=== PATIENT | female | born 1990 | race Caucasian/White ===

== ENCOUNTER 2021-05-03 17:39 | Emergency (ER) | payer OTHER, SELFPAY ==
[2021-05-03 18:38] VITALS: BP 118/74; PULSE 75; RESP 14; TEMP 36.9; O2SAT 100; BMI 29.9
--- NOTE | 2021-05-03 19:05 | USR_ITS ---
PROCEDURE INFORMATION: Exam: US Abdomen, Limited; Right Upper Quadrant Exam date and time: 05/03/2021 7:05 PM Age: 31 years old Clinical indication: Abdominal pain; Acute; Patient HX: Had gastric bypass in last 6 months; Additional info: Abd pain TECHNIQUE: Imaging protocol: US abdomen. Real time ultrasound with image documentation. Limited exam focused on the right upper quadrant. COMPARISON: No relevant prior studies available. FINDINGS: Liver: Normal. No masses. Gallbladder: Cholelithiasis. Gallbladder wall 3.6 mm greatest thickness in the fundus. No pericholecystic fluid. No significant gallbladder distention. Common bile duct: Common bile duct 3-4 mm diameter. No intrahepatic bile duct dilation. Pancreas: Visualized pancreas is unremarkable. Right kidney: Normal. No mass. No hydronephrosis. Aorta: Abdominal aorta is normal diameter. US/US gall bladder [id number] IMPRESSION: 1. Cholelithiasis. 2. Gallbladder wall upper limits normal, but no pericholecystic fluid seen to suggest convincing evidence for acute cholecystitis. Clinical correlation necessary.
--- NOTE | 2021-05-03 20:24 | W.ED.ABDPA2 ---
HPI - Abdominal Pain General: Chief Complaint: Abdominal Pain Stated Complaint: Nausia, vomiting, Dr. lenny romero gall stones Time Seen by Provider: 05/03/21 20:14 Source: patient Mode of arrival: ambulatory Limitations: no limitations History of Present Illness: 31-year-old female who had a history of gastric sleeve back in December states that over the last 3 to 4 days she has been having epigastric right upper quadrant pain especially with eating and extreme decreased appetite. She states that her physician was worried it could be her gallstone. She has had no vomiting denies any fever denies any diarrhea or change in bowel habits. States that her pain currently is a 3 out of 10 and cramping in nature. Denies any severe pain. Associated Symptoms: Reports nausea; Denies chills, dysuria and fever(s) Review of Systems Const: Denies: fever(s), chills, body aches or change in appetite Eyes: Denies: blurry vision or eye discomfort ENMT: Denies: throat pain or dental pain Card: Denies: chest pain Resp: Denies: dyspnea GI: Reports: abdominal pain and nausea : Denies: dysuria Musc: Denies: neck pain or back pain Skin/Breast: Denies: rash Neuro: Denies: headache(s) Psych: Denies: depression Faisal/Lymph: Denies: easy bruising All/Imm: Denies: urticaria PFSH ED PFSH: Surgical History H/O gastric sleeve Social History (Updated 05/03/21 @ 20:26 by Ramses Davidson MD) Substance/Drug Use: never Physical Exam Const: COMMON NORMALS: no acute distress, patient oriented x3 and healthy appearing HENMT: COMMON NORMALS: normocephalic and atraumatic HEAD & SCALP: normocephalic and atraumatic Eye: COMMON NORMALS: Equal, round and reactive pupils present and EOMs intact bilaterally PUPIL: Yes Equal, round and reactive pupils present Neck/C-Spine: COMMON NORMALS: full ROM and supple Chest: COMMONS NORMALS: normal inspection of the chest and normal palpation of entire chest wall Resp: COMMON NORMALS: normal respiratory effort, No retractions, No use of accessory muscles and clear to auscultation bilaterally AUSCULTATION: clear to auscultation bilaterally Cardio: COMMON NORMALS: regular rate, regular rhythm and No murmurs present (Cardio) RATE: regular rate RHYTHM: regular rhythm GI: COMMON NORMALS: Normal to inspection, nondistended, normoactive bowel sounds present, Soft to palpation, non-tender and no masses PALPATION: Yes Soft to palpation Extremity: COMMON NORMALS: normal to inspection and full ROM Neuro: COMMON NORMALS: patient oriented x3, moves all extremities and no focal motor deficits Psych: COMMON NORMALS: mental status grossly normal, Normal thought process present and cooperative THOUGHT PROCESS: Normal thought process present Skin: COMMON NORMALS: no rashes or lesions noted and no wounds GENERAL SKIN EXAM: no rashes or lesions noted Course Vital Signs: Vital signs: Vital Signs Temperature 98.4 F 05/03/21 18:38 Pulse Rate 75 05/03/21 18:38 Respiratory Rate 16 05/03/21 21:39 Blood Pressure 118/74 05/03/21 18:38 Pulse Oximetry 100 05/03/21 18:38 MDM - Abdominal Pain Medical Decision Making Patient presents here with abdominal pain likely from biliary colic ultrasound did show gallstones no signs of cholecystitis patient's blood work is normal she feels improved here after IV fluids and Zofran. Will prescribe her pain meds for home and get her follow-up with surgery outpatient for her gallbladder she is return if worsening she understands agrees to plan. Lab Data : 05/03/21 20:20 05/03/21 20:20 Labs/Radiology: Radiology Impressions Gallbladder Ultrasound 05/03/21 19:05 IMPRESSION: 1. Cholelithiasis. 2. Gallbladder wall upper limits normal, but no pericholecystic fluid seen to suggest convincing evidence for acute cholecystitis. Clinical correlation necessary. Laboratory Results WBC 7.8 10^3/uL (4.0-10.0) 05/03/21 20:20 RBC 5.10 10^6/uL (4.1-5.3) 05/03/21 20:20 Hgb 12.5 g/dL (11.5-15.3) 05/03/21 20:20 Hct 41.3 % (37.0-47.0) 05/03/21 20:20 MCV 81.0 fl (81-99) 05/03/21 20:20 MCH 24.5 pg (28.0-34.0) L 05/03/21 20:20 MCHC 30.3 g/dL (30.0-36.0) 05/03/21 20:20 RDW 17.2 % (12.1-15.1) H 05/03/21 20:20 Plt Count 391 10^3/cmm (130-400) 05/03/21 20:20 MPV 11.0 fL (7.4-10.4) H 05/03/21 20:20 Neut % (Auto) 68.1 % 05/03/21 20:20 Lymph % (Auto) 23.5 % 05/03/21 20:20 [place] % (Auto) 6.3 % 05/03/21 20:20 Eos % (Auto) 1.3 % 05/03/21 20:20 Baso % (Auto) 0.5 % 05/03/21 20:20 Neut # (Auto) 5.34 10^3/uL (1.8-7.7) 05/03/21 20:20 Lymph # (Auto) 1.8 10^3/uL (0.8-4.8) 05/03/21 20:20 [place] # (Auto) 0.5 10^3/uL (0.2-0.9) 05/03/21 20:20 Eos # (Auto) 0.1 10^3/uL (0.0-0.8) 05/03/21 20:20 Baso # (Auto) 0.0 10^3/uL (0.0-0.1) 05/03/21 20:20 Nucleated RBC % (auto) 0 % 05/03/21 20:20 Nucleated RBCs # 0.0 /100WBC 05/03/21 20:20 Sodium 139 mmol/L (136-145) 05/03/21 20:20 Potassium 3.7 mmol/L (3.5-5.1) 05/03/21 20:20 Chloride 98 mmol/L (98-107) 05/03/21 20:20 Carbon Dioxide 19 mmol/L (22-29) L 05/03/21 20:20 Anion Gap 25.7 (5-19) H 05/03/21 20:20 BUN 5 mg/dL (6-20) L 05/03/21 20:20 Creatinine 0.4 mg/dL (0.5-0.9) L 05/03/21 20:20 GFR Calculation 183.8 mL/min (90-130) H 05/03/21 20:20 Glucose 66 mg/dL (65-115) 05/03/21 20:20 Calculated Osmolality 283 mOsm/kg (285-295) L 05/03/21 20:20 Calcium 9.0 mg/dL (8.5-10.5) 05/03/21 20:20 Total Bilirubin 0.4 mg/dL (0.15-1.2) 05/03/21 20:20 AST 30 U/L (0-32) 05/03/21 20:20 ALT 15 U/L (0-33) 05/03/21 20:20 Alkaline Phosphatase 55 IU/L (35-105) 05/03/21 20:20 Total Protein 7.8 g/dL (6.6-8.7) 05/03/21 20:20 Albumin 4.5 g/dL (3.5-5.2) 05/03/21 20:20 Globulin 3.3 g/dL (1.3-4.6) 05/03/21 20:20 Lipase 26 U/L (13-60) 05/03/21 20:20 Discharge Plan Discharge Patient Disposition: Home Clinical Impression: Gallstone Prescriptions: New hydrocodone-acetaminophen 5-325 mg tablet 1 tab PO Q6H PRN (Reason: pain) Qty: 14 0RF Reglan 10 mg tablet 10 mg PO Q6H PRN (Reason: nausea and vomiting) Qty: 20 0RF Discharge Orders: Discharge ED (Routine); Ordered 05/03/21 Ordered By: Ramses Davidson Referrals: Jaime Parham MD [Physician] - 1-3 days Discharge Diet: Advance as tolerated Discharge Activity: Resume usual activity Patient Instructions: Biliary Colic (ED) Coding Level of Care Code ED Enterprise Software Engineer for Chg Fwd Exam Comprehensive
[2021-05-03 20:42] LABS: Basophils % 0.5 %; Eosinophils # 0.1 10^3/uL (0.0-0.8); Eosinophils % 1.3 %; Hematocrit 41.3 % (37.0-47.0); Hemoglobin 12.5 g/dL (11.5-15.3); Lymphocytes # 1.8 10^3/uL (0.8-4.8); Lymphocytes % 23.5 %; Mean Corpuscular HGB Conc 30.3 g/dL (30.0-36.0); Mean Corpuscular Hemoglobin 24.5 pg (28.0-34.0); Monocytes # 0.5 10^3/uL (0.2-0.9); Monocytes % 6.3 %; Neutrophils # 5.34 10^3/uL (1.8-7.7); Neutrophils % 68.1 %; Nucleated Red Blood Cells % 0 %; Platelet Count 391 10^3/cmm (130-400); Red Cell Distribution Width 17.2 % (12.1-15.1); White Blood Count 7.8 10^3/uL (4.0-10.0)
[2021-05-03 21:05] LABS: Albumin Level 4.5 g/dL (3.5-5.2); Alkaline Phosphatase 55 IU/L (35-105); Blood Urea Nitrogen 5 mg/dL (6-20); Carbon Dioxide 19 mmol/L (22-29); Chloride 98 mmol/L (98-107); Globulin 3.3 g/dL (1.3-4.6); Glomerular Filtration Rate 183.8 mL/min (90-130); Glucose 66 mg/dL (65-115); Lipase 26 U/L (13-60); Osmolality Calculated 283 mOsm/kg (285-295); Sodium 139 mmol/L (136-145); Total Bilirubin 0.4 mg/dL (0.15-1.2); Total Protein 7.8 g/dL (6.6-8.7)
[2021-05-03 21:07] LABS: Alanine Aminotransferase 15 U/L (0-33); Anion Gap 25.7 (5-19); Aspartate Amino Transferase 30 U/L (0-32); Potassium 3.7 mmol/L (3.5-5.1)
[2021-05-03 21:39] VITALS: RESP 16
[2021-05-03] MEDS: ondansetron 2 mg/ML SDV 2 mL 4 MG IVP (21:39)
[2021-05-03] MEDS: morphine 4 mg/mL SDV 1 mL IVP (21:39)
[2021-05-03] MEDS: sodium chloride 0.9% 1,000 ML 999 ML IV (21:40)
--- NOTE | 2021-05-03 22:42 | CTR_ITS ---
PROCEDURE INFORMATION: Exam: CT Abdomen And Pelvis With Contrast Exam date and time: 05/03/2021 10:42 PM Age: 31 years old Clinical indication: Nausea and vomiting; Prior surgery; Surgery date: 6+ months; Surgery type: Gastric sleeve; Patient HX: C/O n/v TECHNIQUE: Imaging protocol: Computed tomography of the abdomen and pelvis with contrast. Radiation optimization: All CT scans at this facility use at least one of these dose optimization techniques: automated exposure control; mA and/or kV adjustment per patient size (includes targeted exams where dose is matched to clinical indication); or iterative reconstruction. Contrast material: OMNI 300; Contrast volume: 95 ml; Contrast route: INTRAVENOUS (IV); COMPARISON: US renal BI* [id number] 05/03/2021 7:51 PM RADIATION DOSE METRICS: Total DLP (mGy-cm): 1609.16 FINDINGS: Liver: Geographic wedge-shaped transient hepatic perfusion difference in the anterior right hepatic lobe with characteristic location 3rd inflow lesion. Gallbladder and bile ducts: Normal. No calcified stones. No ductal dilation. Pancreas: Normal. No ductal dilation. Spleen: Normal. No splenomegaly. Adrenal glands: Normal. No mass. Kidneys and ureters: Normal. No hydronephrosis. Stomach and bowel: Gastric sleeve surgical change to the stomach without complication. No inflammatory bowel wall thickening. Negative for bowel obstruction. Negative for bowel perforation. Appendix: No evidence of appendicitis. Normal appearance. Intraperitoneal space: Unremarkable. No free air. No significant fluid collection. Vasculature: Unremarkable. No abdominal aortic aneurysm. Lymph nodes: Unremarkable. No enlarged lymph nodes. Urinary bladder: Unremarkable as visualized. Reproductive: Unremarkable as visualized. Bones/joints: Unremarkable. No acute fracture. Soft tissues: Unremarkable. CT/CT abdomen pelvis w con* [id number] IMPRESSION: Negative CT abdomen and pelvis. No acute pathology identified.
[2021-05-03] MEDS: diphenhydrAMINE 50 mg/mL SDV 1mL 25 MG IVP (22:50)
[2021-05-03] MEDS: metoclopramide 5 mg/mL SDV 2 mL IVP (22:50)
[2021-05-03] MEDS: iohexol 300 mg/mL 100 mL Btl IV (22:58)
[2021-05-04 00:14] VITALS: RESP 16
--- NOTE | 2021-05-06 13:52 | DCPLANNER ---
Patient had message to schedule a follow up appointment for patient with general surgery. corporate relations manager emailed patients information to Jyoti Hernandez and Kady at [facility] General Surgery / ENT clinic. Patients information will be printed and reviewed. Clinic will call patient with appointment information. For further information on this referral, please refer to visit 05.06.21 for follow up appointment information.
== END 2021-05-04 00:14 | disposition home or self-care (01) ==
PROVIDERS: Emergency Medicine; Emergency Provider Emergency Medicine
DX: K80.80 Other cholelithiasis without obstruction (principal)
CPT/HCPCS: 74177; 76705; 80053; 83690; 85025; 96361; 96374; 96375; 99284; J1200; J2270; J2405; J2765; J7030; Q9967

== ENCOUNTER 2021-05-06 05:39 | Emergency (ER) | payer OTHER, SELFPAY ==
[2021-05-06 05:45] VITALS: BP 116/81; PULSE 88; RESP 18; TEMP 36.4; O2SAT 100; BMI 28.9
[2021-05-06] MEDS: sodium chloride 0.9% 1,000 ML 999 ML IV (06:04)
[2021-05-06] MEDS: ondansetron 2 mg/ML SDV 2 mL 4 MG IVP (06:04)
[2021-05-06 06:08] LABS: Basophils % 0.5 %; Eosinophils % 0.1 %; Hematocrit 43.4 % (37.0-47.0); Hemoglobin 12.7 g/dL (11.5-15.3); Lymphocytes # 1.3 10^3/uL (0.8-4.8); Lymphocytes % 14.8 %; Mean Corpuscular HGB Conc 29.3 g/dL (30.0-36.0); Mean Corpuscular Hemoglobin 24.1 pg (28.0-34.0); Mean Corpuscular Volume 82.5 fl (81-99); Mean Platelet Volume 10.4 fL (7.4-10.4); Monocytes # 0.5 10^3/uL (0.2-0.9); Monocytes % 5.7 %; Neutrophils # 6.63 10^3/uL (1.8-7.7); Neutrophils % 78.5 %; Nucleated Red Blood Cells % 0 %; Platelet Count 405 10^3/cmm (130-400); Red Blood Count 5.26 10^6/uL (4.1-5.3); Red Cell Distribution Width 17.3 % (12.1-15.1); White Blood Count 8.4 10^3/uL (4.0-10.0)
[2021-05-06 06:26] VITALS: RESP 18
[2021-05-06] MEDS: morphine 4 mg/mL SDV 1 mL IVP (06:26)
--- NOTE | 2021-05-06 07:00 | ED_ITS ---
HPI - Abdominal Pain General: Chief Complaint: Abdominal Pain Stated Complaint: Gall stones Time Seen by Provider: 05/06/21 05:56 History of Present Illness: 31-year-old female presents to the ER with right upper quadrant abdominal pain. Patient has known cholelithiasis. She was here 3 days ago on May 03 at that time she had an ultrasound that showed cholelithiasis but no evidence of pericholecystic fluid no thickening of the gallbladder wall no signs of acute cholecystitis. CT done at the same visit showed normal findings. Neither study showed any evidence of cholecystitis or dilation of common bile duct. She states to the weekend she has had nausea and vomiting she is used various antiemetics with minimal relief has only been able to take moderate amounts of p.o. fluids. She denies any medic easy melena hematemesis or coffee-ground emesis. MD elicited complaint: abdominal pain Pertinent past history: other (Cholelithiasis) Onset (ago): day(s) Pain Consistency: intermittent Location: RUQ Severity: moderate Quality: cramping Radiation: RUQ Exacerbating factors: eating Relieving factors: nothing Associated Symptoms: Reports anorexia, bloating, change in bowel habits, change in stool character, GI cramping, loose stools, nausea, poor appetite and vom iting; Denies belching, chills, coffee ground emesis, constipation, diarrhea, dyspepsia, dysuria, excessive flatus, fever(s), heartburn, hematochezia, hematuria, hematemesis, fecal incontinence and melena Review of Systems Const: Denies: fever(s) or chills ENMT: Denies: throat pain, ear or mastoid pain, nasal discharge or nasal congestion Card: Denies: chest pain, edema, dyspnea on exertion or orthopnea Resp: Denies: dyspnea, productive cough or non-productive cough GI: Reports: nausea, vomiting, bloating, GI cramping, change in bowel habits and change in stool character; Denies: hematemesis, coffee ground emesis, heartburn, diarrhea, constipation, belching, excessive flatus, fecal incontinence, hematochezia or melena : Denies: dysuria or hematuria Skin/Breast: Denies: rash or pruritus PFSH ED PFSH: Medical History (Updated 05/06/21 @ 08:13 by Cristopher Ruiz DO) Cholelithiasis Surgical History (Updated 05/06/21 @ 08:13 by Cristopher Ruiz DO) H/O gastric sleeve Social History (Updated 05/06/21 @ 07:36 by Cristopher Ruiz DO) Smoking and tobacco status: never smoked Alcohol intake: current Physical Exam Const: COMMON NORMALS: no acute distress GENERAL APPEARANCE: cooperative and comfortable ORIENTATION/CONSCIOUSNESS: Yes awake, Yes oriented to person, Yes oriented to place and Yes oriented to time HENMT: COMMON NORMALS: normocephalic, atraumatic and hearing grossly normal bilaterally HEAD & SCALP: normocephalic and atraumatic Neck/C-Spine: COMMON NORMALS: no JVD Resp: COMMON NORMALS: normal respiratory effort, No retractions, No use of accessory muscles and clear to auscultation bilaterally AUSCULTATION: clear to auscultation bilaterally Cardio: COMMON NORMALS: no JVD, regular rate, regular rhythm and No murmurs present (Cardio) RATE: regular rate RHYTHM: regular rhythm GI: AUSCULTATION: Yes normoactive bowel sounds PALPATION: Yes Tenderness to palpation present (GI) Details: RUQ (Positive Campbell sign) and No Hepatomegaly present PERCUSSION: normal to percussion and dullness to percussion Extremity: COMMON NORMALS: normal to inspection, capillary refill normal, no clubbing, cyanosis or edema, no calf tenderness and no pedal edema Neuro: SENSORIUM/ORIENTATION: Yes oriented to person, Yes oriented to place and Yes oriented to time Skin: COMMON NORMALS: no rashes or lesions noted GENERAL SKIN EXAM: no rashes or lesions noted Course Vital Signs: Vital signs: Vital Signs Temperature 97.5 F L 05/06/21 05:45 Pulse Rate 88 05/06/21 05:45 Respiratory Rate 18 05/06/21 06:26 Blood Pressure 116/81 05/06/21 05:45 Pulse Oximetry 100 05/06/21 05:45 MDM - Abdominal Pain Medical Decision Making Patient has a history of previous bariatric surgery and now is having symptoms that certainly do sound gallbladder related and she has some right upper quadrant abdominal discomfort. However she has no signs of acute cholecystitis. She is mildly dehydrated has little bit of an anion gap we are giving her a couple liters of fluid discussed with Dr. Parham. She does not have objective evidence of acute cholecystitis. Currently the hospital as at peak capacity, she does not have an emergent gallbladder. Dr. Parham recommends a follow-up w ith him in his clinic tomorrow. I am going to get her set up for a HIDA scan and start her on Carafate and Protonix as well and increase her hydrocodone and gave up promethazine suppository. Clear liquid diet until she sees Dr. Parham. Medical Records I reviewed the patient's medical records. Lab Data I reviewed the patient's lab results. : 05/06/21 06:01 05/06/21 06:39 Labs/Radiology: Radiology Impressions Gallbladder Ultrasound 05/06/21 07:07 IMPRESSION: 1. Cholelithiasis without evidence for acute cholecystitis. Some of the stones are close to the gallbladder neck and do not move with positioning. At this time there is no common bile duct obstruction. 2. The amount of sludge within the gallbladder has increased since 05/03/2021. 3. No gallbladder wall thickening or pericholecystic fluid 4. Focal hepatic steatosis. Laboratory Results WBC 8.4 10^3/uL (4.0-10.0) 05/06/21 06:01 RBC 5.26 10^6/uL (4.1-5.3) 05/06/21 06:01 Hgb 12.7 g/dL (11.5-15.3) 05/06/21 06:01 Hct 43.4 % (37.0-47.0) 05/06/21 06:01 MCV 82.5 fl (81-99) 05/06/21 06:01 MCH 24.1 pg (28.0-34.0) L 05/06/21 06:01 MCHC 29.3 g/dL (30.0-36.0) L 05/06/21 06:01 RDW 17.3 % (12.1-15.1) H 05/06/21 06:01 Plt Count 405 10^3/cmm (130-400) H 05/06/21 06:01 MPV 10.4 fL (7.4-10.4) 05/06/21 06:01 Neut % (Auto) 78.5 % 05/06/21 06:01 Lymph % (Auto) 14.8 % 05/06/21 06:01 [place] % (Auto) 5.7 % 05/06/21 06:01 Eos % (Auto) 0.1 % 05/06/21 06:01 Baso % (Auto) 0.5 % 05/06/21 06:01 Neut # (Auto) 6.63 10^3/uL (1.8-7.7) 05/06/21 06:01 Lymph # (Auto) 1.3 10^3/uL (0.8-4.8) 05/06/21 06:01 [place] # (Auto) 0.5 10^3/uL (0.2-0.9) 05/06/21 06:01 Eos # (Auto) 0.0 10^3/uL (0.0-0.8) 05/06/21 06:01 Baso # (Auto) 0.0 10^3/uL (0.0-0.1) 05/06/21 06:01 Nucleated RBC % (auto) 0 % 05/06/21 06:01 Nucleated RBCs # 0.0 /100WBC 05/06/21 06:01 Sodium 141 mmol/L (136-145) 05/06/21 06:39 Potassium 3.8 mmol/L (3.5-5.1) 05/06/21 06:39 Chloride 107 mmol/L (98-107) 05/06/21 06:39 Carbon Dioxide 14 mmol/L (22-29) L 05/06/21 06:39 Anion Gap 23.8 (5-19) H 05/06/21 06:39 BUN 2 mg/dL (6-20) L 05/06/21 06:39 Creatinine 0.4 mg/dL (0.5-0.9) L 05/06/21 06:39 GFR Calculation 183.8 mL/min (90-130) H 05/06/21 06:39 Glucose 131 mg/dL (65-115) H 05/06/21 06:39 Calculated Osmolality 290 mOsm/kg (285-295) 05/06/21 06:39 Calcium 7.7 mg/dL (8.5-10.5) L 05/06/21 06:39 Total Bilirubin 0.3 mg/dL (0.15-1.2) 05/06/21 06:39 AST 13 U/L (0-32) 05/06/21 06:39 ALT 10 U/L (0-33) 05/06/21 06:39 Alkaline Phosphatase 47 IU/L (35-105) 05/06/21 06:39 C-Reactive Protein 13.8 mg/L (0.0-4.9) H 05/06/21 06:39 Total Protein 6.8 g/dL (6.6-8.7) 05/06/21 06:39 Albumin 4.2 g/dL (3.5-5.2) 05/06/21 06:39 Globulin 2.6 g/dL (1.3-4.6) 05/06/21 06:39 Lipase 26 U/L (13-60) 05/06/21 06:39 Discharge Plan Discharge Patient Disposition: Home Clinical Impression: N&V (nausea and vomiting), H/O gastric sleeve, Cholelithiasis Condition: Stable Prescriptions: New Carafate 1 gram tablet 1 g PO Q6H 28 Days Qty: 112 0RF hydrocodone-acetaminophen 10-325 mg tablet 1 tab PO Q6H PRN (Reason: pain) Qty: 20 0RF promethazine 25 mg suppository 25 mg IN Q4H PRN (Reason: nausea and vomiting) Qty: 12 1RF Protonix 40 mg tablet,delayed release (DR/EC) 40 mg PO BID 10 Days Qty: 20 0RF No Action hydrocodone-acetaminophen 5-325 mg tablet 1 tab PO Q6H PRN (Reason: pain) Qty: 14 0RF Reglan 10 mg tablet 10 mg PO Q6H PRN (Reason: nausea and vomiting) Qty: 20 0RF Discharge Orders: Discharge ED (Routine); Ordered 05/06/21 Ordered By: Cristopher Ruiz Discharge Diet: Clear Liquid Patient Instructions: Opioid Safety Activity Restrictions/Additional Instructions: Clear liquid diet. Pain medicines were increased Phenergan to use as needed Carafate and Protonix to use scheduled. Case management make arrangements for you to see Dr. Parham tomorrow as well as we will schedule a HIDA scan. Coding Level of Care Code ED Bowling Or Skating Front Desk Clerk for Chg Fwd Exam Comprehensive
--- NOTE | 2021-05-06 07:07 | US_ITS ---
WS: [id number] RIGHT UPPER QUADRANT ULTRASOUND HISTORY: RUQ abd pain, cholelithiasis COMPARISON: 05/03/2021 Liver: 14.2 cm in length. Liver is normal size. Focal area of increased echogenicity along the surfac e of the liver measures 4.1 x 1.4 x 3.8 cm. Portal Vein: Normal hepatopetal flow with monophasic waveform. Gallbladder: Gallbladder is abnormal. There is sludge and stones within the gallbladder. There is a l arge amount shadowing from the neck of the gallbladder. A stone at the neck is not excluded. There is no common bile duct obstruction at this time. Gallbladder wall measures 0.26 cm. CBD: 0.3 cm Pancreas: Poorly visualized. Right kidney: 10.4 cm in length. Normal size and echogenicity. No hydronephrosis or mass. Aorta and IVC: Unremarkable abdominal aorta and IVC. No ascites. US/US gall bladder [id number] IMPRESSION: 1. Cholelithiasis without evidence for acute cholecystitis. Some of the stones are close to the gallbladder neck and do not move with positioning. At this ti me there is no common bile duct obstruction. 2. The amount of sludge within the gallbladder has increased since 05/03/2021. 3. No gallbladder wall thickening or pericholecystic fluid 4. Focal hepatic steatosis.
[2021-05-06 07:12] LABS: Alanine Aminotransferase 10 U/L (0-33); Albumin Level 4.2 g/dL (3.5-5.2); Alkaline Phosphatase 47 IU/L (35-105); Anion Gap 23.8 (5-19); Aspartate Amino Transferase 13 U/L (0-32); Blood Urea Nitrogen 2 mg/dL (6-20); C Reactive Protein 13.8 mg/L (0.0-4.9); Calcium 7.7 mg/dL (8.5-10.5); Carbon Dioxide 14 mmol/L (22-29); Chloride 107 mmol/L (98-107); Globulin 2.6 g/dL (1.3-4.6); Glomerular Filtration Rate 183.8 mL/min (90-130); Glucose 131 mg/dL (65-115); Lipase 26 U/L (13-60); Osmolality Calculated 290 mOsm/kg (285-295); Potassium 3.8 mmol/L (3.5-5.1); Sodium 141 mmol/L (136-145); Total Bilirubin 0.3 mg/dL (0.15-1.2); Total Protein 6.8 g/dL (6.6-8.7)
[2021-05-06] MEDS: dextrose 5%-sod chloride 0.9% 1,000 ML 2000 ML IV (07:51)
[2021-05-06 08:24] VITALS: BP 119/78; PULSE 86; RESP 16; O2SAT 97
--- NOTE | 2021-05-06 13:55 | DCPLANNER ---
Addendum entered by Pebbles Suero 06/21/21 14:00: Per centralized scheduling the HIDA scan that was ordered was cancelled due to patient request. Addendum entered by Pebbles Suero 05/10/21 06:16: Patient had a follow up appointment scheduled for 05.06.21 with general surgery - patient did attend appointment. Original Note: manager gaming had message to schedule a follow up appointment for patient with general surgery. manager gaming emailed patients information Jyoti Hernandez and Kady at [facility] General Surgery / ENT clinic. Patients information will be printed and reviewed. Clinic will call patient with appointment information. manager gaming also had an order to schedule an outpatient HIDA scan for patient. manager gaming faxed signed order to centralized scheduling, who will call patient with appointment information.
== END 2021-05-06 08:25 | disposition home or self-care (01) ==
PROVIDERS: Emergency Medicine; Emergency Provider Family Medicine
DX: K80.20 Calculus of gallbladder without cholecystitis without obstruction (principal); U07.1 COVID-19
CPT/HCPCS: 36415; 76705; 80053; 83690; 85025; 86140; 87635; 96360; 99284; J2270; J2405; J7030

== ENCOUNTER 2021-05-09 10:19 | Day surgery (SDC) | payer OTHER, SELFPAY ==
[2021-05-08 09:37] VITALS: BMI 28.4
[2021-05-09] VITALS (7 sets, daily range): BP systolic 101–135; BP diastolic 72–81; PULSE 80–92; RESP 16–18; TEMP 36.4–36.8; O2SAT 99–100
--- NOTE | 2021-05-09 11:00 | ANES.PREANE2 ---
Pre-Anesthetic Assessment Height/Weight: Height 1.65 m Weight 77.564 kg Temp Pulse Resp BP Pulse Ox 97.6 F 89 18 117/81 99 05/09/21 10:55 05/09/21 10:55 05/09/21 10:55 05/09/21 10:55 05/09/21 10:55 Preop Diagnosis: Cholelithiasis Operation Date: 05/09/21 13:50 Proposed Procedures p Laparoscopic Cholecystectomy 35369/k80.20(Not Applicable) - Jaime Parham MD Familial anesthetic complications: Holds breath with morphine Was Beta Rafa taken within 24 hours: N/A Was Clonidine taken within 24 hours: N/A Last intake: > 8 hrs, vomited some stomach acid > 1 hr ago Social No alcohol and No tobacco Exam alert, oriented x 3, clear to auscultation bilaterally and regular rate & rhythm Airway Mallampati: Class II Dentition: full Pulmonary Asthma Anesthetic Plan ASA status: 2 Anesthesia: General Medications/Allergies Home Medications Medication Instructions Recorded Confirmed Last Taken Type hydrocodone 5 mg-acetaminophen 325 1 tab PO Q6H PRN #14 tab 05/03/21 05/08/21 Unknown Rx mg tablet metoclopramide HCl 10 mg tablet 10 mg PO Q6H PRN #20 tab 05/03/21 05/08/21 Unknown Rx (Reglan) hydrocodone 10 mg-acetaminophen 1 tab PO Q6H PRN #20 tab 05/06/21 05/08/21 Unknown Rx 325 mg tablet pantoprazole 40 mg tablet,delayed 40 mg PO BID 10 Days #20 tab 05/06/21 05/08/21 Unknown Rx release (Protonix) promethazine 25 mg rectal 25 mg ND Q4H PRN #12 ea 05/06/21 05/08/21 Unknown Rx suppository famotidine 20 mg tablet 20 mg PO BID 05/08/21 05/08/21 Unknown History Allergies Allergy/AdvReac Type Severity Reaction Status Date / Time celecoxib [From Celebrex] Allergy ALGY-Hives Verified 05/08/21 09:32 [facility] Anesthesia Medical History Cholelithiasis Surgical History H/O gastric sleeve H/O wisdom tooth extraction S/P tonsillectomy and adenoidectomy Status post surgery desmoid left leg Social History Smoking and tobacco status: never smoked Alcohol intake: current Data Anesthesia Cardiac Studies: No Data to Display
[2021-05-09 11:04] LABS: OR HCG Qualitative Urine Negative (Negative)
--- NOTE | 2021-05-09 11:05 | P.HP_ITS ---
Same Day Surgery H&P Indication for Procedure/HPI DATE OF PROCEDURE: May 09, 2021 CHIEF COMPLAINT/INDICATIONFOR SURGICAL PROCEDURE: lap ariel/EGD PREOP DIAGNOSIS: Cholelithiasis PLANNED PROCEDURE: Operation Date: 05/09/21 13:50 Proposed Procedures p Laparoscopic Cholecystectomy 03985/k80.20(Not Applicable) - Jaime Parham MD Medications/Allergies* Home Medications Medication Instructions Recorded Confirmed Type famotidine 20 mg tablet 20 mg PO BID 05/08/21 05/08/21 History Allergies/Adverse Reactions Allergy/AdvReac Type Severity Reaction Status Date / Time celecoxib [From Celebrex] Allergy ALGY-Hives Verified 05/08/21 09:32 Pertinent History/Comorbid Conditions* Medical History (Updated 05/06/21 @ 08:13 by Cristopher Ruiz DO) Cholelithiasis Surgical History (Updated 05/06/21 @ 11:16 by Jaime Parham MD) H/O gastric sleeve H/O wisdom tooth extraction S/P tonsillectomy and adenoidectomy Status post surgery desmoid left leg Social History Smoking and tobacco status: never smoked Alcohol intake: current Pertinent Exam Findings alert, oriented x 3 and regular rate & rhythm Recommendations Surgery/Procedure today Coding Level of Care Code Acute Superintendent Car Construction for Chg Eduardo
[2021-05-09] MEDS: ondansetron 2 mg/ML SDV 2 mL 4 MG IVP ×2 (11:10→11:33)
[2021-05-09] MEDS: sodium chloride 0.9% 1,000 ML 30 ML IV (11:32)
[2021-05-09] MEDS: scopolamine 1.5 Patch 1 PATCH TRANSDERMA (11:33)
--- NOTE | 2021-05-09 13:13 | PM.OP ---
Operative Report Date of procedure: May 09, 2021 Pre-op diagnosis: 1. Cholelithiasis 2. Status post laparoscopic sleeve gastrectomy Post-op diagnosis: 1. Cholelithiasis 2. sleeve gastrectomy changes noted, no other abnormalities Procedure done: 1. Esophagogastroduodenoscopy without biopsy 2. Laparoscopic cholecystectomy Specimens removed/disposition: Gallbladder Surgeon: Jaime Parham Anesthesia: General Condition: stable Disposition: PACU Procedure: The patient was taken to the operating room and was intubated under general anesthesia. a bite block was placed and the gastroscopewas introduced and advanced up to fourth portion of the duodenum and slowly withdrawn. Esophagus: Normal GE junction: Z-line at 40 cm Stomach Fundus: Normal Body: Normal Antrum: Normal Pylorus: Normal Post sleeve gastrectomy changes noted Duodenum First portion of duodenum: Normal Second portion of duodenum: Normal Third portion of duodenum: Normal Fourth portion of duodenum: Normal After the antibiotic had been administered, the abdomen was prepped and draped in a sterile manner. Using a #15 blade, a 1 centimeter infraumbilical curvilinear incision was made and using an open [place] technique the peritoneal cavity was entered. A 10 millimeter port was placed and 15 millimeters of pneumoperitoneum was created. A 10 millimeter, 30 degrees scope was then introduced. Three 5 millimeter ports were placed in the epigastric, midclavicular and the anterior axillary line two fingerbreadths below the costal margin on the right side under the direct visualization. Ratcheted forceps were introduced into the lateral most port and was used to retract the fundus of the gallbladder cephalad and using forceps the infundibulum of the gallbladder was retracted laterally. Using L-hook cautery the peritoneum overlying the Calot's triangle was opened medially and laterally until the cystic duct and the cystic artery were skeletonized. Dissection was carried along the body of the gallbladder and after ensuring critical view of safety, 4 clips applied on the cystic duct and 3 clips applied on the cystic artery and cut leaving, 3 clips on the remaining portion of the duct and 2 clips on the remaining portion of the artery. The rest of the gallbladder was dissected off the liver using L-hook cautery. There was no bleeding or bile leaking noted from the gallbladder fossa and the clips appeared to be in place. An EndoCatch bag was introduced to remove the gallbladder. All the ports were removed under direct visualization and there was no bleeding noted from the port sites. The fascia of the umbilicus was closed using [id number] 0 Vicryl sutures and the subcutaneous tissue was approximated using 3-0 Vicryl sutures. The skin at all four ports were closed using 4-0 Monocryl and Dermabond. A total of 10 millimeters of 0.5% Marcaine was infiltrated around the port sites. The patient was stable throughout the procedure.
--- NOTE | 2021-05-09 13:35 | P.PCN_ITS ---
PACU note Narrative: VSS, Good respiratory effort, report to [employer] Exam: awake
--- NOTE | 2021-05-09 13:35 | PM.PACU ---
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
--- NOTE | 2021-05-09 14:21 | ANE.PACU2 ---
Inpatient post-anesthesia follow up: Airway intact: Yes Vital signs: Temperature 98.0 F Pulse Rate 80 Respiratory Rate 18 Blood Pressure 133/79 Pulse Oximetry 99 Oxygen Delivery Me thod Room Air Oxygen Flow Rate Fraction of Inspir ed Oxygen Hydration adequate: Yes Nausea and vomiting: Yes Pain level: 2 Mental status: Baseline
[2021-05-09] MEDS: fentaNYL 50 mcg/mL INJ 2mL IVP (14:38)
[2021-05-09] MEDS: HYDROcodone-acetaminophen 5-325 mg Tablet 1 TAB PO (15:25)
== END 2021-05-09 15:30 | disposition home or self-care (01) ==
PROVIDERS: Anesthesiology; PCP Nurse Practitioner Family; Visit Provider Surgery
PROC: 0FT44ZZ Resection of Gallbladder, Percutaneous Endoscopic Approach (ICD-10-PCS; CPT 47562; principal; 2021-05-09 13:40)
PROC: 0DJ08ZZ Inspection of Upper Intestinal Tract, Via Natural or Artificial Opening Endoscopic (ICD-10-PCS; CPT 43235; 2021-05-09 13:40)
DX: K80.10 Calculus of gallbladder with chronic cholecystitis without obstruction (principal); Z98.84 Bariatric surgery status; J45.909 Unspecified asthma, uncomplicated
CPT/HCPCS: 43235; 47562; 84703; 88304; 96374; 96376; J0690; J1100; J2405; J2704; J3010; J3490; J7030

== ENCOUNTER 2021-05-22 11:58 | Outpatient (CLI) | payer OTHER, SELFPAY ==
--- NOTE | 2021-05-22 13:00 | MR_ITS ---
WS: [id number] MRI CERVICAL SPINE NONCONTRAST AND CONTRAST TECHNIQUE: Sagittal T1, T2 and STIR imaging. Axial T2, gradient, and fiesta imaging. Post gadolinium imaging was obtained. CLINICAL INFORMATION: R29.898 - Other symptoms and signs involving the musculos... COMPARISON: None. FINDINGS: Straightening of the normal cervical lordosis. Cord signal is normal. No abnormal gadolinium enhancem ent. Normal cord signal. C2-C3: Normal. C3-C4: Normal C4-C5: Mild disc bulging with a tiny shallow central protrusion. Mild central canal stenosis. Mild bi lateral foraminal narrowing with mild facet arthropathy. C5-C6: Disc osteophyte complex with endplate ridging. Moderate central canal stenosis with slight ind entation on the cervical cord. Shallow central disc protrusion. Mild LEFT greater than RIGHT bony for aminal narrowing. C6-C7: Shallow central disc protrusion with slight indentation on the cervical cord. Mild central can al stenosis. Mild bilateral bony foraminal narrowing. Mild facet arthropathy. C7-T1: No significant disc bulging. Spinal canal and foramen are patent. Visualized upper thoracic co rd is normal. Visualized brain stem structures: Normal. Prevertebral soft tissues: Normal. MR/MR cervical spine wo/w [id number] IMPRESSION: 1. Straightening of the normal cervical lordosis. Cord signal is normal. 2. No abnormal gadolinium enhancement. No enhancing lesions in the cervical co rd. 3. Small central disc osteophyte protrusions with mild central canal stenosis and slight indentation on the cervical cord C4-C5, moderate C5-C6, and mild C6- C7. 4. Mild bony foraminal narrowing more prominent at LEFT C5-C6 and LEFT C6-C7.
--- NOTE | 2021-05-22 13:00 | MR_ITS ---
WS: [email or web address] MRI THORACIC SPINE WITH CONTRAST TECHNIQUE: Sagittal T1, T2 and STIR imaging. Axial T2 imaging. Post gadolinium imaging was obtained. CLINICAL INFORMATION: R29.898 - Other symptoms and signs involving the musculos... COMPARISON: None. FINDINGS: Mild thoracic kyphosis. No acute compression. No high-grade central canal stenosis. A few small disc protrusions in the mid thoracic spine more prominent at LEFT T5-T6, LEFT T6-T7, and RIGHT T7-T8. Tiny RIGHT pericentral protrusion T4-T5. Small protrusions at LEFT T5-T6 and LEFT T6-T7 with indentation on the thoracic cord. RIGHT pericentr al protrusion at T7-T8 with indentation on the RIGHT ventral thoracic cord. Tiny syrinx or prominent central canal in the thoracic cord at T7 and T8. Cord signal is otherwise normal. No abnormal gadolin ium enhancement. A few Schmorl's nodes in the lower thoracic spine. Adrenal glands are normal. Small disc osteophyte protrusions in the cervical spine seen on the coffee supervisor imaging at C5-C6 and C6-C7 with mild central canal stenosis. Mild facet arthropathy lower thoracic spine. MR/MR thoracic spine wo/w [id number] IMPRESSION: 1. Mild thoracic curve. No acute compression. No high-grade central canal sten osis. 2. Tiny disc protrusions in the mid thoracic spine as described above with sli ght indentation on the thoracic cord. No significant central canal stenosis. 3. Tiny prominent central canal or syrinx at the T7 and T8 level. No abnormal gadolinium enhancement. 4. Cord signal is otherwise normal. 5. Small disc osteophyte protrusions in the cervical spine at C4-C5 C5-C6 and C6-C7 with mild central canal stenosis more prominent at C5-C6.
== END 2021-05-22 11:59 | disposition home or self-care (01) ==
PROVIDERS: PCP Nurse Practitioner Family; Visit Provider Specialist
DX: R29.898 Other symptoms and signs involving the musculoskeletal system (principal)
CPT/HCPCS: 72156; 72157; A9577

== ENCOUNTER 2021-05-25 11:00 | Outpatient (RCR) | payer OTHER, SELFPAY ==
[2021-05-22 09:54] VITALS: BP 131/83; PULSE 92; RESP 18; TEMP 36.3; O2SAT 92
[2021-05-22 12:08] LABS: Basophils % 0.7 %; Eosinophils # 0.2 10^3/uL (0.0-0.8); Eosinophils % 5.4 %; Hematocrit 36.1 % (37.0-47.0); Hemoglobin 11.3 g/dL (11.5-15.3); Lymphocytes % 21.7 %; Mean Corpuscular HGB Conc 31.3 g/dL (30.0-36.0); Mean Corpuscular Hemoglobin 25.1 pg (28.0-34.0); Mean Corpuscular Volume 80.2 fl (81-99); Mean Platelet Volume 10.1 fL (7.4-10.4); Monocytes # 0.3 10^3/uL (0.2-0.9); Monocytes % 6.3 %; Neutrophils # 2.89 10^3/uL (1.8-7.7); Neutrophils % 65.4 %; Nucleated Red Blood Cells % 0 %; Platelet Count 293 10^3/cmm (130-400); Red Cell Distribution Width 17.9 % (12.1-15.1); White Blood Count 4.4 10^3/uL (4.0-10.0)
[2021-05-22 13:18] LABS: Anion Gap 18.3 (5-19); Blood Urea Nitrogen 4 mg/dL (6-20); Calcium 9.1 mg/dL (8.5-10.5); Carbon Dioxide 22 mmol/L (22-29); Chloride 100 mmol/L (98-107); Glomerular Filtration Rate 142.1 mL/min (90-130); Glucose 100 mg/dL (65-115); Osmolality Calculated 281 mOsm/kg (285-295); Potassium 3.3 mmol/L (3.5-5.1); Sodium 137 mmol/L (136-145)
[2021-05-23 10:50] VITALS: BP 108/63; PULSE 86; RESP 18; TEMP 36.2; O2SAT 98
[2021-05-23 10:54] LABS: Basophils # 0.1 10^3/uL (0.0-0.1); Basophils % 1.6 %; Eosinophils # 0.3 10^3/uL (0.0-0.8); Eosinophils % 8.4 %; Hematocrit 33.3 % (37.0-47.0); Hemoglobin 10.4 g/dL (11.5-15.3); Lymphocytes # 0.9 10^3/uL (0.8-4.8); Lymphocytes % 30.5 %; Mean Corpuscular HGB Conc 31.2 g/dL (30.0-36.0); Mean Corpuscular Hemoglobin 25.1 pg (28.0-34.0); Mean Corpuscular Volume 80.4 fl (81-99); Mean Platelet Volume 10.8 fL (7.4-10.4); Monocytes # 0.3 10^3/uL (0.2-0.9); Monocytes % 10.7 %; Neutrophils # 1.49 10^3/uL (1.8-7.7); Neutrophils % 48.5 %; Nucleated Red Blood Cells % 0 %; Platelet Count 275 10^3/cmm (130-400); Red Blood Count 4.14 10^6/uL (4.1-5.3); Red Cell Distribution Width 18.2 % (12.1-15.1); White Blood Count 3.1 10^3/uL (4.0-10.0)
[2021-05-23 11:14] LABS: Anion Gap 13.5 (5-19); Blood Urea Nitrogen 3 mg/dL (6-20); Calcium 8.9 mg/dL (8.5-10.5); Carbon Dioxide 23 mmol/L (22-29); Chloride 102 mmol/L (98-107); Glomerular Filtration Rate 183.8 mL/min (90-130); Glucose 94 mg/dL (65-115); Osmolality Calculated 276 mOsm/kg (285-295); Potassium 3.5 mmol/L (3.5-5.1); Sodium 135 mmol/L (136-145)
[2021-05-24 12:50] LABS: Basophils % 1.2 %; Eosinophils # 0.3 10^3/uL (0.0-0.8); Eosinophils % 10.2 %; Hematocrit 33.3 % (37.0-47.0); Hemoglobin 10.4 g/dL (11.5-15.3); Lymphocytes % 30.8 %; Mean Corpuscular HGB Conc 31.2 g/dL (30.0-36.0); Mean Corpuscular Hemoglobin 25.1 pg (28.0-34.0); Mean Corpuscular Volume 80.4 fl (81-99); Mean Platelet Volume 10.2 fL (7.4-10.4); Monocytes # 0.3 10^3/uL (0.2-0.9); Monocytes % 10.2 %; Neutrophils # 1.54 10^3/uL (1.8-7.7); Neutrophils % 47.3 %; Nucleated Red Blood Cells % 0 %; Platelet Count 271 10^3/cmm (130-400); Red Blood Count 4.14 10^6/uL (4.1-5.3); Red Cell Distribution Width 18.1 % (12.1-15.1); White Blood Count 3.3 10^3/uL (4.0-10.0)
[2021-05-24 13:09] LABS: Anion Gap 12.3 (5-19); Blood Urea Nitrogen 3 mg/dL (6-20); Calcium 8.6 mg/dL (8.5-10.5); Carbon Dioxide 25 mmol/L (22-29); Chloride 104 mmol/L (98-107); Glomerular Filtration Rate 183.8 mL/min (90-130); Glucose 97 mg/dL (65-115); Osmolality Calculated 282 mOsm/kg (285-295); Potassium 3.3 mmol/L (3.5-5.1); Sodium 138 mmol/L (136-145)
[2021-05-24 13:48] VITALS: BP 109/77; PULSE 88; RESP 18; TEMP 36.7; O2SAT 97
[2021-05-25 11:13] VITALS: BP 119/81; PULSE 94; RESP 16; TEMP 36.1; O2SAT 97
[2021-05-25 12:11] LABS: Basophils # 0.1 10^3/uL (0.0-0.1); Basophils % 1.9 %; Eosinophils # 0.3 10^3/uL (0.0-0.8); Hematocrit 36.5 % (37.0-47.0); Hemoglobin 11.2 g/dL (11.5-15.3); Lymphocytes # 1.3 10^3/uL (0.8-4.8); Lymphocytes % 41.7 %; Mean Corpuscular HGB Conc 30.7 g/dL (30.0-36.0); Mean Corpuscular Hemoglobin 25.7 pg (28.0-34.0); Mean Corpuscular Volume 83.9 fl (81-99); Mean Platelet Volume 9.9 fL (7.4-10.4); Monocytes # 0.4 10^3/uL (0.2-0.9); Monocytes % 11.8 %; Neutrophils % 34.3 %; Nucleated Red Blood Cells % 0 %; Platelet Count 289 10^3/cmm (130-400); Red Blood Count 4.35 10^6/uL (4.1-5.3); Red Cell Distribution Width 19.1 % (12.1-15.1); White Blood Count 3.2 10^3/uL (4.0-10.0)
[2021-05-25 12:49] LABS: Alanine Aminotransferase 12 U/L (0-33); Albumin Level 3.5 g/dL (3.5-5.2); Alkaline Phosphatase 43 IU/L (35-105); Anion Gap 11.4 (5-19); Aspartate Amino Transferase 21 U/L (0-32); Blood Urea Nitrogen 2 mg/dL (6-20); Calcium 9.3 mg/dL (8.5-10.5); Carbon Dioxide 21 mmol/L (22-29); Chloride 104 mmol/L (98-107); Globulin 5.6 g/dL (1.3-4.6); Glomerular Filtration Rate 183.8 mL/min (90-130); Glucose 89 mg/dL (65-115); Osmolality Calculated 272 mOsm/kg (285-295); Potassium 3.4 mmol/L (3.5-5.1); Sodium 133 mmol/L (136-145); Total Bilirubin 0.6 mg/dL (0.15-1.2); Total Protein 9.1 g/dL (6.6-8.7)
--- NOTE | 2021-05-25 13:51 | PC.NURSE ---
infusion started at 1136. finished at 1350. iv dc and pt discharged
== END 2021-05-27 23:59 | disposition home or self-care (01) ==
LOC: GILAB 11:00
PROVIDERS: PCP Nurse Practitioner Family; Visit Provider Specialist
DX: G61.0 Guillain-Barre syndrome (principal)
CPT/HCPCS: 36415; 80048; 80053; 85025; 96365; 96366; J1568

== ENCOUNTER 2021-06-13 10:03 | Outpatient (CLI) | payer OTHER, SELFPAY ==
[2021-06-13 11:17] LABS: Appearance CSF CLEAR (CLEAR); Color CSF COLORLESS (COLORLESS)
[2021-06-13 11:20] LABS: CSF Mononuclear # 0.002 10^3/uL (50-90); Mononuclear WBC CSF % 100 % (50-90); Polynuclear WBC CSF % 0 % (0-10); Red Blood Cell CSF 0 10^3/uL (0-0); White Blood Cell CSF 2 /uL (0-5)
[2021-06-13 11:26] LABS: Glucose CSF 48 mg/dL (40-70); Total Protein CSF 25 mg/dL (15-45)
[2021-06-14 09:02] LABS: PROTEIN, TOTAL 6.8 g/dL (6.1-8.1)
[2021-06-14 14:42] LABS: Anti-Double Strand DNA AB 1 IU/mL; Jo-1 Antibody <1.0 NEG AI (<1.0 NEG); SM/RNP Antibodies <1.0 NEG AI (<1.0 NEG); SS-B/LA IGG <1.0 NEG AI (<1.0 NEG); Scleroderma Ab(Scl-70) Ab <1.0 NEG AI (<1.0 NEG); Ss-A/Ro Igg <1.0 NEG AI (<1.0 NEG)
[2021-06-14 16:47] LABS: ALBUMIN 3.6 g/dL (3.8-4.8); ALPHA 1 GLOBULIN 0.3 g/dL (0.2-0.3); ALPHA 2 GLOBULIN 0.6 g/dL (0.5-0.9); BETA 1 GLOBULIN 0.4 g/dL (0.4-0.6); BETA 2 GLOBULIN 0.3 g/dL (0.2-0.5); GAMMA GLOBULIN 1.5 g/dL (0.8-1.7)
[2021-06-18 20:17] LABS: Lyme Disease AB (IGG),IBL NO BANDS DETECTED; Lyme Disease AB (IGM), IBL NO BANDS DETECTED
[2021-06-18 22:43] LABS: Myelin-Associated Glycopro IgM <1:1600 titer (<1:1600)
[2021-06-22 03:33] LABS: IGG CSF 3.1 mg/dL (0.8-7.7); IGG Serum Test 1730 mg/dL (600-1640); Oligoclonal Bands (IGG) CSF ONE BAND (ABSENT)
== END 2021-06-13 10:04 | disposition home or self-care (01) ==
PROVIDERS: PCP Nurse Practitioner Family; Visit Provider Specialist
DX: G35 Multiple sclerosis (principal)
CPT/HCPCS: 80500; 82040; 82042; 82784; 82945; 83520; 83873; 83916; 84155; 84157; 84165; 86225; 86235; 86431; 86617; 87070; 87075; 87205; 88108; 89050

== ENCOUNTER 2021-07-17 08:04 | Outpatient (RCR) | payer OTHER, SELFPAY | END 2021-07-27 23:59 | disposition home or self-care (01) | LOC: SPT 08:04 | PROVIDERS: PCP Nurse Practitioner Family; Referring Provider Specialist; Visit Provider Specialist | DX: G61.0 Guillain-Barre syndrome (principal) | CPT/HCPCS: 97161 ==

== ENCOUNTER 2021-07-28 | Outpatient (RCR) | payer OTHER, SELFPAY | END 2021-08-27 23:59 | disposition home or self-care (01) | LOC: SPT | PROVIDERS: PCP Nurse Practitioner Family; Referring Provider Specialist; Visit Provider Specialist | DX: G61.0 Guillain-Barre syndrome (principal) | CPT/HCPCS: 97110 ==

== ENCOUNTER 2021-08-28 06:00 | Outpatient (RCR) | payer OTHER, SELFPAY | END 2021-09-26 23:59 | disposition home or self-care (01) | LOC: SPT 06:00 | PROVIDERS: PCP Nurse Practitioner Family; Referring Provider Specialist; Visit Provider Specialist | DX: G61.0 Guillain-Barre syndrome (principal) | CPT/HCPCS: 97110 ==

== ENCOUNTER 2022-03-05 12:18 | Outpatient (CLI) | payer OTHER, SELFPAY ==
--- NOTE | 2022-03-05 11:45 | MR_ITS ---
WS: [email or web address] MRI OF THE LEFT LOWER EXTREMITY WITHOUT GADOLINIUM ENHANCEMENT. INDICATION: History of desmoid tumors. New possible lesion suspected by patient with pain and swellin g LEFT calf TECHNIQUE: Coronal T1 coronal STIR axial T2 fat sat axial PD fat-sat sagittal T1, sagittal STIR imagi ng FINDINGS: Normal fatty bone marrow signal in the tibia and fibula LEFT lower extremity. Palpable al er overlying the medial calf in the area of concern. Normal underlying subcutaneous soft tissues in t his area. Normal underlying musculature. A few prominent superficial veins directly deep to the palpa ble marker. No evidence of suspicious mass or lesion in this area. MR/MR lower leg LT wo con* [id number] IMPRESSION: 1. No evidence of pathologic mass or lesion deep to the palpable marker medial calf. 2. Superficial veins immediately deep to the palpable marker. No other suspici ous underlying lesions. 3. Normal bone marrow signal in the tibia and fibula.
== END 2022-03-05 12:19 | disposition home or self-care (01) ==
LOC: RAD 12:18
PROVIDERS: PCP Nurse Practitioner Family; Visit Provider Specialist
DX: D48.1 Neoplasm of uncertain behavior of connective and other soft tissue (principal)
CPT/HCPCS: 73718

== ENCOUNTER → 2023-06-12 10:04 | Outpatient (BNVA) | payer OTHER, SELFPAY | PROVIDERS: PCP Family Medicine; Visit Provider Family Medicine | DX: J45.40 Moderate persistent asthma, uncomplicated (principal); F90.9 Attention-deficit hyperactivity disorder, unspecified type; G25.81 Restless legs syndrome; E55.9 Vitamin D deficiency, unspecified; G61.0 Guillain-Barre syndrome; M54.50 Low back pain, unspecified; G89.29 Other chronic pain; M48.02 Spinal stenosis, cervical region; E53.8 Deficiency of other specified B group vitamins | CPT/HCPCS: 80053; 80061; 82728; 83550; 85025 ==

== ENCOUNTER 2023-07-14 12:10 | Oncology outpatient (recurring) (ONCR) | payer OTHER, SELFPAY ==
[2023-07-07] MEDS: sodium chloride 0.9% 250 ML 75 ML IV (09:23)
[2023-07-07] MEDS: ferric carboxy (IVPB) 750 MG in sodium chloride 0.9% (100 ml) 100 ML 345 MG IV (09:23)
[2023-07-07 09:36] VITALS: BP 102/51; PULSE 80; RESP 16; TEMP 36.6; O2SAT 97
[2023-07-07 09:51] VITALS: BP 102/56; PULSE 74; RESP 16; TEMP 37.1; O2SAT 99
[2023-07-14] MEDS: ferric carboxy (IVPB) 750 MG in sodium chloride 0.9% (100 ml) 100 ML 345 MG IV (13:02)
[2023-07-14 14:46] VITALS: BP 112/66; PULSE 68; RESP 16; TEMP 36.6; O2SAT 99
== END 2023-07-28 23:59 | disposition home or self-care (01) ==
PROVIDERS: PCP Family Medicine; Visit Provider Internal Medicine Medical Oncology
DX: D50.9 Iron deficiency anemia, unspecified (principal); Z53.9 Procedure and treatment not carried out, unspecified reason
CPT/HCPCS: 96365; J1439; J7050

== ENCOUNTER → 2023-09-02 09:54 | Outpatient (BNVA) | payer OTHER, SELFPAY | PROVIDERS: PCP Family Medicine; Visit Provider Family Medicine | DX: D50.9 Iron deficiency anemia, unspecified (principal); G25.81 Restless legs syndrome; F90.9 Attention-deficit hyperactivity disorder, unspecified type; J45.40 Moderate persistent asthma, uncomplicated; M54.50 Low back pain, unspecified; G89.29 Other chronic pain; M48.02 Spinal stenosis, cervical region; G61.0 Guillain-Barre syndrome; R45.4 Irritability and anger | CPT/HCPCS: 82728; 83550; 85025 ==

== ENCOUNTER → 2024-03-29 12:00 | Outpatient (BNVA) | payer OTHER, SELFPAY | PROVIDERS: PCP Family Medicine; Visit Provider Family Medicine | DX: Z30.9 Encounter for contraceptive management, unspecified | CPT/HCPCS: 81025 ==

== ENCOUNTER → 2024-07-20 09:42 | Outpatient (BNVA) | payer MEDICAID, SELFPAY | PROVIDERS: PCP Family Medicine; Visit Provider Nurse Practitioner Women's Health | DX: Z30.9 Encounter for contraceptive management, unspecified (principal) | CPT/HCPCS: 81025 ==

== ENCOUNTER 2024-09-28 14:46 | Outpatient (CLI) | payer MEDICAID, SELFPAY ==
--- NOTE | 2024-09-28 14:52 | XR_ITS ---
WS: [email or web address] XR lumbar spine 2-3V* [id number] REASON FOR EXAM: chronic lower back pain FINDINGS: Relatively normal lumbar spine curvatures. No significant vertebral body abnormality. Moderate narrowing of the L5-S1 disc space. Minimal narrowing of the L4-L5 disc space. The disc spaces of the lumbar spine are otherwise intact and well preserved. No spondylolysis. No significant spondylolisthesis. Mild degenerative change in the facet joints L4-S1. XR/XR lumbar spine 2-3V* [id number] IMPRESSION: Mild to moderate degenerative spondylosis in the lower lumbar spine as above.
== END 2024-09-28 14:47 | disposition home or self-care (01) ==
LOC: RAD 14:49
PROVIDERS: PCP Family Medicine; Visit Provider Family Medicine
DX: M47.816 Spondylosis without myelopathy or radiculopathy, lumbar region (principal)
CPT/HCPCS: 72100

== ENCOUNTER 2024-10-03 08:03 | Outpatient (CLI) | payer MEDICAID, SELFPAY ==
--- NOTE | 2024-10-03 08:00 | MR_ITS ---
WS: [email or web address] MRI LUMBAR SPINE NONCONTRAST TECHNIQUE: Sagittal T1, T2 and STIR imaging. Axial T1 and T2 imaging. CLINICAL INFORMATION: neuropathy, chronic pain, desmoid tumor COMPARISON: None. FINDINGS: Mild lumbar curve. No acute compression. Disc bulging worse at L4-L5 and L5-S1 with small annular tears. Incidental Tarlov cyst in the sacrum. L1-L2: Moderate facet arthropathy. Spinal canal and foramen are patent. L2-L3: No significant disc bulging. Moderate facet arthropathy. L3-L4: Mild annular bulging. Spinal canal and foramen are patent. Moderate facet arthropathy. L4-L5: Central disc protrusion with a small annular fissure. Mild central canal stenosis. Significant impingement of traversing L5 nerve roots bilaterally in the subarticular recess. Foramen are patent. L5-S1: Mild disc bulging with a tiny central protrusion. Slight encroachment on the S1 nerve roots. Spinal canal and foramen are patent. Moderate facet arthropathy. Visualized pelvic bony structures: Normal. Paravertebral soft tissues: Normal. Partially visualized retroflexed uterus. MR/MR lumbar spine wo con* [id number] IMPRESSION: 1. Central disc protrusion L4-5 with an annular fissure. Impingement of jeanna sing L5 nerve roots bilaterally in the subarticular recess. Mild central canal stenosis. 2. Tiny central protrusion L5-S1 with slight contact of the LEFT greater than RIGHT S1 nerve roots. 3. Moderate facet arthropathy throughout the lumbar spine worse at L3-L4 and L 4-L5.
--- NOTE | 2024-10-03 08:45 | MR_ITS ---
WS: [email or web address] MRI CERVICAL SPINE NONCONTRAST TECHNIQUE: Sagittal T1, T2 and STIR imaging. Axial T2, gradient, and fiesta imaging. CLINICAL INFORMATION: neuropathy bilateral arms COMPARISON: MRI 2021 FINDINGS: Straightening of the normal cervical lordosis. Small central disc protrusions worse at C4-C6 with central canal stenosis. Indentation and flattening of the cervical cord worse at C4-C5, C5-C6, and C6-C7 this appears progressed compared to previous. C2-C3: Mild disc bulging. Spinal canal and foramina are patent. C3-C4: Central disc protrusion with mild central canal stenosis. Slight contact of the cervical cord. Small annular fissure. Foramen are patent. Mild facet arthropathy. C4-C5: Central disc protrusion with moderate central canal stenosis. Uncovertebral joint hypertrophy. Mild bilateral bony foraminal narrowing. Mild facet arthropathy. Spinal canal stenosis at this level appears progressed. C5-C6: Disc osteophyte complex with severe central canal stenosis. Indentation with flattening of the cervical cord. This appears slightly progressed. Severe LEFT and moderate RIGHT bony foraminal narrowing. Mild facet arthropathy. C6-C7: Central disc osteophyte protrusion with indentation on the RIGHT ventral cervical cord. Moderate central canal stenosis. This is similar in appearance to previous. Moderate to severe LEFT and moderate RIGHT bony foraminal narrowing. Uncovertebral joint hypertrophy. C7-T1: Osteophytic ridging with mild LEFT greater than RIGHT bony foraminal narrowing. Spinal canal is patent. Visualized brain stem structures: Normal. Prevertebral soft tissues: Normal. MR/MR cervical spin wo con* [id number] IMPRESSION: Some images degraded by motion. 1. Progressed moderate central canal stenosis C4-5 and severe at C5-6 with ind entation and flattening of the cervical cord. Recommend spine surgery consultat ion. 2. Moderate similar-appearing central canal stenosis C6-7 with disc osteophyte protrusion. 3. Cord signal not well evaluated due to motion artifact. 4. Multilevel stable bony foraminal narrowing described above.
== END 2024-10-03 08:04 | disposition home or self-care (01) ==
LOC: RAD 08:04
PROVIDERS: PCP Family Medicine; Visit Provider Family Medicine
DX: M48.02 Spinal stenosis, cervical region (principal); M48.061 Spinal stenosis, lumbar region without neurogenic claudication; M51.26 Other intervertebral disc displacement, lumbar region; M47.816 Spondylosis without myelopathy or radiculopathy, lumbar region
CPT/HCPCS: 72141; 72148